=== PATIENT | female | born 1995 | race Caucasian/White ===

== ENCOUNTER 2018-02-28 11:02 | Emergency (ER) | payer SELFPAY ==
[~2018-02-28] VITALS: Ht 162.6 cm; Wt 61.2 kg
[2018-02-28 11:10] VITALS: BP 112/65; Ht 162.6 cm; Wt 61.2 kg
== END 2018-02-28 11:34 | disposition home or self-care (01) ==
LOC: ED 11:02
DX: N39.0 Urinary tract infection, site not specified (principal)